=== PATIENT | male | born 1955 | race African-American/Black ===

== ENCOUNTER 2018-05-23 17:10 | Inpatient (IN) ==
[2018-05-23] MEDS ORDERED: MORPHINE 4 MG/1 ML VIAL IV STA (17:39)
[2018-05-23] MEDS ORDERED: FUROSEMIDE 100 MG/10 ML VIAL IV STA (17:39)
[2018-05-23] MEDS ORDERED: ALBUTEROL/IPRATROPIUM 3 ML NEB RESP TX STA (17:39)
[2018-05-23] MEDS ORDERED: ONDANSETRON 4 MG/2 ML VIAL IV STA (17:39)
[2018-05-23] MEDS ORDERED: NITROGLYCERIN 2% OINT 1 INCH/GM PACK TOP STA (17:39)
[2018-05-23] MEDS ORDERED: hydrALAZINE 20 MG/1 ML VIAL IV STA (17:39)
[2018-05-23 17:50] LABS: Basophils % 0.4 % (0.0-0.8); Eosinophils # 0.3 10*3/uL (0.0-0.87); Eosinophils % 2.4 % (0.00-10.9); Hematocrit 30.7 VOL% (42.0-52.0); Hemoglobin 10.3 GM/DL (14.0-18.0); Immature Granulocytes % 0.4 %; Immature Granulocytes Absolute 0.04 #; Lymphocytes # 0.8 10*3/uL (1.4-4.0); Lymphocytes % 7.4 % (21.2-54.2); Mean Corpuscular HGB Conc 33.6 GM/DL (32-36); Mean Corpuscular Hemoglobin 32 PG (27-34); Mean Platelet Volume 9.9 FL (9.6-12.0); Monocytes # 1.1 10*3/uL (0.11-0.8); Neutrophils # 8.6 10*3/uL (1.4-7.4); Neutrophils % 79.4 % (38.7-73.9); Platelet Count 255 T/CUMM (130-400); Red Blood Count 3.23 MC/CUMM (3.8-5.5); Red Cell Distribution Width 15.5 % (9.3-17.3); White Blood Count 10.8 T/CUMM (4-12)
[2018-05-23 18:20] LABS: Albumin 3.1 G/DL (3.4-5.0); Bilirubin,Total 0.4 MG/DL (0.2-1.0); Calcium 8.8 MG/DL (8.5-10.1); Osmolality,Calculated 301.8 MOS/KG (273-304); Potassium 4.3 MMOL/L (3.5-5.1); Total Protein 7.8 G/DL (6.4-8.3)
[2018-05-23 18:27] LABS: PT Patient Result 10.5 SECS
[2018-05-23] MEDS ORDERED: cefTRIAXone 1,000 MG in SODIUM CHLORIDE 0.9% 100 ML IV STA (18:30)
[2018-05-23] MEDS ORDERED: ZALEPLON 5 MG CAPSULE PO PRN (19:35)
[2018-05-23] MEDS ORDERED: LABETALOL 100 MG/20 ML VIAL IV PRN (19:43)
[2018-05-23 19:55] LABS: Apearance,Urine CLEAR (Clear); Bilirubin,Urine Negative (Negative); Blood, Urine Negative (Negative); Glucose,Urine (UA) Negative (Negative); Ketones,Urine Negative (Negative); Nitrite,Urine Negative (Negative); Protein,Urine >=500 MG/DL; RBC,Urine <1 /HPF (0-4); Urine Color Straw (Yellow); Urine Specific Gravity 1.007 (1.001-1.035); Urine Urobilinogen < 2.0 EU/DL (0.2-1.0); WBC,Urine <1 /HPF (0-6)
[2018-05-23 20:19] LABS: Barbiturates Screen,Urine Negative (Negative); Benzodiazepines Screen,Urine Negative (Negative); Cannabinoid Screen,Urine Negative (Negative); Opiate Screen,Urine Negative (Negative); Phencyclidine Screen,Urine Negative (Negative)
[2018-05-23] MEDS: ENOXAPARIN 30 MG/0.3 ML SYRINGE SUBCUT SCH (21:50)
[2018-05-23] MEDS: SIMVASTATIN 20 MG TABLET PO SCH (21:50)
[2018-05-23] MEDS: CARVEDILOL 12.5 MG TABLET PO SCH (21:51)
[2018-05-23] MEDS: OLOPATADINE 0.1% OPH SOLN 5 ML BOTTLE BOTH EYES SCH (21:51)
[2018-05-23] MEDS: FUROSEMIDE 40 MG/4 ML VIAL IV SCH (21:51)
[2018-05-23] MEDS: AZITHROMYCIN INJ 500 MG in SODIUM CHLORIDE 0.9% 250 ML IV SCH (21:51)
[2018-05-23 22:30] LABS: Troponin I 0.049 NG/ML (0.00-0.045)
[2018-05-24 03:19] LABS: Basophils % 0.6 % (0.0-0.8); Eosinophils # 0.1 10*3/uL (0.0-0.87); Hematocrit 30.5 VOL% (42.0-52.0); Hemoglobin 10.2 GM/DL (14.0-18.0); Immature Granulocytes % 0.6 %; Immature Granulocytes Absolute 0.04 #; Lymphocytes # 0.7 10*3/uL (1.4-4.0); Lymphocytes % 9.7 % (21.2-54.2); Mean Corpuscular HGB Conc 33.4 GM/DL (32-36); Mean Corpuscular Hemoglobin 32 PG (27-34); Mean Corpuscular Volume 96.8 FL (87-102); Mean Platelet Volume 9.9 FL (9.6-12.0); Monocytes # 0.6 10*3/uL (0.11-0.8); Monocytes % 8.2 % (1.7-12.7); Neutrophils # 5.6 10*3/uL (1.4-7.4); Neutrophils % 78.9 % (38.7-73.9); Platelet Count 245 T/CUMM (130-400); Red Blood Count 3.15 MC/CUMM (3.8-5.5); Red Cell Distribution Width 15.7 % (9.3-17.3); White Blood Count 7.1 T/CUMM (4-12)
[2018-05-24 03:37] LABS: % Iron Saturation 15.6 % (18-50); Ferritin 258.4 ng/ml (26-388); Free T4 (Free Thyroxine) 1.22 NG/DL (0.76-1.46)
[2018-05-24 03:38] LABS: Troponin I 0.042 NG/ML (0.00-0.045)
[2018-05-24 03:43] LABS: Calcium 8.5 MG/DL (8.5-10.1); Osmolality,Calculated 300.1 MOS/KG (273-304); Potassium 4.1 MMOL/L (3.5-5.1); Risk Ratio 2.74; Thyroid Stimulating Hormone 1.91 uIU/ml (0.358-3.74); VLDL CHOLESTEROL 26.6 MG/DL
[2018-05-24 04:07] LABS: Folate 21.3 NG/ML (5.4-24.0); Vitamin B12 451 PG/ML (211-911)
[2018-05-24 04:20] LABS: Sedimentation Rate-Westergren 112 MM/HR (0-20)
[2018-05-24 09:17] LABS: Hemoglobin A1 (Alkaline) 97.2 % (96.5-98.5); Hemoglobin A2 (Alkaline) 2.8 % (1.5-3.5)
[2018-05-24] MEDS: FAMOTIDINE 20 MG TABLET PO SCH (10:05)
[2018-05-24] MEDS: FUROSEMIDE 40 MG/4 ML VIAL IV SCH ×2 (10:06→21:01)
[2018-05-24] MEDS: OLOPATADINE 0.1% OPH SOLN 5 ML BOTTLE BOTH EYES SCH ×2 (10:06→21:02)
[2018-05-24] MEDS: CARVEDILOL 12.5 MG TABLET PO SCH ×2 (10:06→16:58)
[2018-05-24] MEDS: ALLOPURINOL 100 MG TABLET PO SCH (10:06)
[2018-05-24] MEDS: GABAPENTIN 300 MG CAPSULE PO SCH ×2 (14:05→21:02)
[2018-05-24] MEDS: IRON (CARBONYL)/VIT C/B12/FA TABLET PO SCH (14:05)
[2018-05-24] MEDS: cefTRIAXone 2,000 MG in SYRINGE 1 EACH IV SCH (16:59)
[2018-05-24] MEDS: ACETAMINOPHEN 325 MG TABLET PO PRN (18:51)
[2018-05-24] MEDS: ENOXAPARIN 30 MG/0.3 ML SYRINGE SUBCUT SCH (21:01)
[2018-05-24] MEDS: SIMVASTATIN 20 MG TABLET PO SCH (21:02)
[2018-05-24] MEDS: AZITHROMYCIN INJ 500 MG in SODIUM CHLORIDE 0.9% 250 ML IV SCH (23:20)
[2018-05-25] MEDS: ALLOPURINOL 100 MG TABLET PO SCH (08:38)
[2018-05-25] MEDS: OLOPATADINE 0.1% OPH SOLN 5 ML BOTTLE BOTH EYES SCH ×2 (08:38→20:48)
[2018-05-25] MEDS: FAMOTIDINE 20 MG TABLET PO SCH (08:38)
[2018-05-25] MEDS: CARVEDILOL 12.5 MG TABLET PO SCH ×3 (08:38→17:40)
[2018-05-25] MEDS: GABAPENTIN 300 MG CAPSULE PO SCH ×2 (08:38→20:47)
[2018-05-25] MEDS: IRON (CARBONYL)/VIT C/B12/FA TABLET PO SCH (08:38)
[2018-05-25] MEDS: FUROSEMIDE 40 MG/4 ML VIAL IV SCH ×2 (09:26→16:20)
[2018-05-25] MEDS: ACETAMINOPHEN 325 MG TABLET PO PRN (15:33)
[2018-05-25] MEDS: cefTRIAXone 2,000 MG in SYRINGE 1 EACH IV SCH (18:06)
[2018-05-25] MEDS: ENOXAPARIN 30 MG/0.3 ML SYRINGE SUBCUT SCH (20:48)
[2018-05-25] MEDS: SIMVASTATIN 20 MG TABLET PO SCH (20:48)
[2018-05-25] MEDS: AZITHROMYCIN INJ 500 MG in SODIUM CHLORIDE 0.9% 250 ML IV SCH (21:17)
[2018-05-26 06:01] LABS: Basophils % 0.4 % (0.0-0.8); Eosinophils # 0.3 10*3/uL (0.0-0.87); Eosinophils % 4.5 % (0.00-10.9); Hemoglobin 9.5 GM/DL (14.0-18.0); Immature Granulocytes % 0.6 %; Immature Granulocytes Absolute 0.04 #; Lymphocytes # 0.9 10*3/uL (1.4-4.0); Mean Corpuscular HGB Conc 32.8 GM/DL (32-36); Mean Corpuscular Hemoglobin 31 PG (27-34); Mean Corpuscular Volume 95.7 FL (87-102); Mean Platelet Volume 10.2 FL (9.6-12.0); Monocytes # 0.9 10*3/uL (0.11-0.8); Neutrophils # 4.5 10*3/uL (1.4-7.4); Neutrophils % 67.5 % (38.7-73.9); Platelet Count 265 T/CUMM (130-400); Red Blood Count 3.03 MC/CUMM (3.8-5.5); Red Cell Distribution Width 14.8 % (9.3-17.3); White Blood Count 6.7 T/CUMM (4-12)
[2018-05-26 06:34] LABS: Calcium 8.1 MG/DL (8.5-10.1); Osmolality,Calculated 298.5 MOS/KG (273-304); Potassium 3.9 MMOL/L (3.5-5.1)
[2018-05-26] MEDS: IRON (CARBONYL)/VIT C/B12/FA TABLET PO SCH (09:08)
[2018-05-26] MEDS: CARVEDILOL 12.5 MG TABLET PO SCH ×2 (09:08→16:53)
[2018-05-26] MEDS: FAMOTIDINE 20 MG TABLET PO SCH (09:08)
[2018-05-26] MEDS: FUROSEMIDE 40 MG/4 ML VIAL IV SCH ×2 (09:08→15:24)
[2018-05-26] MEDS: ALLOPURINOL 100 MG TABLET PO SCH (09:09)
[2018-05-26] MEDS: OLOPATADINE 0.1% OPH SOLN 5 ML BOTTLE BOTH EYES SCH ×2 (09:09→20:25)
[2018-05-26] MEDS: cefTRIAXone 2,000 MG in SYRINGE 1 EACH IV SCH (17:07)
[2018-05-26] MEDS: ENOXAPARIN 30 MG/0.3 ML SYRINGE SUBCUT SCH (20:22)
[2018-05-26] MEDS: GABAPENTIN 300 MG CAPSULE PO SCH (20:22)
[2018-05-26] MEDS: SIMVASTATIN 20 MG TABLET PO SCH (20:22)
[2018-05-26] MEDS: ACETAMINOPHEN 325 MG TABLET PO PRN (20:22)
[2018-05-26] MEDS: AZITHROMYCIN INJ 500 MG in SODIUM CHLORIDE 0.9% 250 ML IV SCH (21:01)
[2018-05-27] MEDS: ALLOPURINOL 100 MG TABLET PO SCH (09:22)
[2018-05-27] MEDS: CARVEDILOL 12.5 MG TABLET PO SCH ×2 (09:22→17:17)
[2018-05-27] MEDS: FAMOTIDINE 20 MG TABLET PO SCH (09:22)
[2018-05-27] MEDS: IRON (CARBONYL)/VIT C/B12/FA TABLET PO SCH (09:23)
[2018-05-27] MEDS: OLOPATADINE 0.1% OPH SOLN 5 ML BOTTLE BOTH EYES SCH ×2 (10:23→20:37)
[2018-05-27] MEDS: FUROSEMIDE 40 MG/4 ML VIAL IV SCH ×2 (10:23→16:15)
[2018-05-27] MEDS: DOCUSATE SODIUM 100 MG CAPSULE PO PRN (10:24)
[2018-05-27] MEDS: cefTRIAXone 2,000 MG in SYRINGE 1 EACH IV SCH (17:51)
[2018-05-27] MEDS: GABAPENTIN 300 MG CAPSULE PO SCH (20:36)
[2018-05-27] MEDS: ENOXAPARIN 30 MG/0.3 ML SYRINGE SUBCUT SCH (20:36)
[2018-05-27] MEDS: SIMVASTATIN 20 MG TABLET PO SCH (20:37)
[2018-05-27] MEDS: AZITHROMYCIN INJ 500 MG in SODIUM CHLORIDE 0.9% 250 ML IV SCH (21:22)
[2018-05-28 04:35] LABS: Basophils % 0.6 % (0.0-0.8); Eosinophils # 0.3 10*3/uL (0.0-0.87); Hematocrit 30.6 VOL% (42.0-52.0); Hemoglobin 10.3 GM/DL (14.0-18.0); Immature Granulocytes % 0.3 %; Immature Granulocytes Absolute 0.02 #; Lymphocytes # 0.9 10*3/uL (1.4-4.0); Lymphocytes % 14.4 % (21.2-54.2); Mean Corpuscular HGB Conc 33.7 GM/DL (32-36); Mean Corpuscular Hemoglobin 32 PG (27-34); Mean Corpuscular Volume 94.4 FL (87-102); Mean Platelet Volume 10.1 FL (9.6-12.0); Monocytes # 1.1 10*3/uL (0.11-0.8); Monocytes % 16.5 % (1.7-12.7); Neutrophils # 4.1 10*3/uL (1.4-7.4); Neutrophils % 64.2 % (38.7-73.9); Platelet Count 304 T/CUMM (130-400); Red Blood Count 3.24 MC/CUMM (3.8-5.5); Red Cell Distribution Width 14.6 % (9.3-17.3); White Blood Count 6.4 T/CUMM (4-12)
[2018-05-28 05:04] LABS: Calcium 8.2 MG/DL (8.5-10.1); Osmolality,Calculated 296.8 MOS/KG (273-304); Potassium 3.7 MMOL/L (3.5-5.1)
[2018-05-28 05:16] LABS: Eosinophils 5 % (0-10); Hypochromasia 1+; Lymphocytes 15 % (20-55); Platelet Estimate Adequate; Segmented Neutrophils 61 % (50-85); Total Cells Counted 100
[2018-05-28] MEDS: FUROSEMIDE 40 MG/4 ML VIAL IV SCH (08:45)
[2018-05-28] MEDS: FAMOTIDINE 20 MG TABLET PO SCH (08:46)
[2018-05-28] MEDS: IRON (CARBONYL)/VIT C/B12/FA TABLET PO SCH (08:46)
[2018-05-28] MEDS: ALLOPURINOL 100 MG TABLET PO SCH (08:46)
[2018-05-28] MEDS: CARVEDILOL 12.5 MG TABLET PO SCH (08:57)
[2018-05-28] MEDS: OLOPATADINE 0.1% OPH SOLN 5 ML BOTTLE BOTH EYES SCH (10:00)
[2018-05-28] MEDS: DOCUSATE SODIUM 100 MG CAPSULE PO PRN (14:27)
[2018-05-28 16:50] VITALS: BP 127/87
== END 2018-05-28 18:23 | disposition home or self-care (01) | DRG 291 ==
LOC: N.ED 17:10 → N.EDINP 19:35 → SUATTDRO 19:35 → N.TELEN 19:57
PROVIDERS: ADMIT Hospitalist

== ENCOUNTER 2019-12-31 17:23 | Inpatient (IN) ==
[2019-12-31] MEDS ORDERED: ACETAMINOPHEN 500 MG TABLET ONE (17:35)
[2019-12-31] MEDS ORDERED: methylPREDNISolone SOD SUC 125 MG/2 ML VIAL IV STA (17:41)
[2019-12-31] MEDS ORDERED: VANCOMYCIN INJ 1,250 MG in SODIUM CHLORIDE 0.9% 250 ML IV STA (17:41)
[2019-12-31] MEDS ORDERED: AZITHROMYCIN 250 MG TABLET PO STA (17:41)
[2019-12-31] MEDS ORDERED: ACETAMINOPHEN 500 MG TABLET PO STA (17:48)
[2019-12-31 18:43] LABS: Basophils % 0.2 % (0.0-0.8); Hemoglobin 9.9 GM/DL (14.0-18.0); Immature Granulocytes % 0.5 %; Immature Granulocytes Absolute 0.03 #; Lymphocytes # 0.5 10*3/uL (1.4-4.0); Lymphocytes % 9.2 % (21.2-54.2); Mean Corpuscular HGB Conc 31.9 GM/DL (32-36); Mean Platelet Volume 9.9 FL (9.6-12.0); Monocytes % 22.6 % (1.7-12.7); Neutrophils % 67.5 % (38.7-73.9); Platelet Count 187 T/CUMM (130-400); Red Blood Count 3.01 MC/CUMM (3.8-5.5); Red Cell Distribution Width 14.9 % (9.3-17.3); White Blood Count 5.5 T/CUMM (4-12)
[2019-12-31 18:52] LABS: INR 1.1
[2019-12-31 19:04] LABS: Albumin 3.4 G/DL (3.4-5.0); Bilirubin,Total 0.5 MG/DL (0.2-1.0); Calcium 8.9 MG/DL (8.5-10.1); Ferritin 952.4 ng/ml (26-388); Osmolality,Calculated 286.8 MOS/KG (273-304); Total Protein 8.2 G/DL (6.4-8.3)
[2019-12-31 19:11] LABS: Band Neutrophils 1 % (0-10); Hypochromasia Slight; Lymphocytes 6 % (20-55); Segmented Neutrophils 77 % (50-85); Total Cells Counted 100
[2019-12-31 19:12] LABS: Platelet Estimate Adequate
[2019-12-31] MEDS ORDERED: GLUCAGON 1 MG VIAL IM PRN (19:39)
[2019-12-31] MEDS ORDERED: ONDANSETRON 4 MG/2 ML VIAL IV PRN (19:39)
[2019-12-31] MEDS ORDERED: DEXTROSE 10% 250 ML BAG IV PRN (19:39)
[2019-12-31 19:43] LABS: Sedimentation Rate-Westergren 87 MM/HR (0-20)
[2019-12-31] MEDS ORDERED: HYDROXYCHLOROQUINE 200 MG TABLET PO SCH (21:00)
[2019-12-31] MEDS: ENOXAPARIN 30 MG/0.3 ML SYRINGE SUBCUT SCH (22:25)
[2019-12-31] MEDS: PIPERACILLIN/TAZOBACTAM 3,375 MG in SODIUM CHLORIDE 0.9% 100 ML IV SCH (23:58)
[2020-01-01] MEDS ORDERED: PANTOPRAZOLE 40 MG TABLET PO SCH (09:00)
[2020-01-01 09:51] LABS: Basophils % 0.2 % (0.0-0.8); Hematocrit 33.1 VOL% (42.0-52.0); Hemoglobin 10.4 GM/DL (14.0-18.0); Immature Granulocytes % 0.7 %; Immature Granulocytes Absolute 0.03 #; Lymphocytes # 0.6 10*3/uL (1.4-4.0); Lymphocytes % 14.3 % (21.2-54.2); Mean Corpuscular HGB Conc 31.4 GM/DL (32-36); Mean Corpuscular Volume 103.1 FL (87-102); Mean Platelet Volume 10.1 FL (9.6-12.0); Monocytes % 5.3 % (1.7-12.7); Neutrophils % 79.5 % (38.7-73.9); Platelet Count 203 T/CUMM (130-400); Red Blood Count 3.21 MC/CUMM (3.8-5.5); Red Cell Distribution Width 14.7 % (9.3-17.3); White Blood Count 4.5 T/CUMM (4-12)
[2020-01-01 10:16] LABS: Albumin 3.3 G/DL (3.4-5.0); Bilirubin,Total 0.8 MG/DL (0.2-1.0); Calcium 9.2 MG/DL (8.5-10.1); Ferritin 1104.4 ng/ml (26-388); Total Protein 8.8 G/DL (6.4-8.3)
[2020-01-01] MEDS: PIPERACILLIN/TAZOBACTAM 3,375 MG in SODIUM CHLORIDE 0.9% 100 ML IV SCH ×2 (10:20→22:39)
[2020-01-01] MEDS ORDERED: VANCOMYCIN INJ 750 MG in SODIUM CHLORIDE 0.9% 250 ML IV PRN (14:47)
[2020-01-01 15:41] LABS: Apearance,Urine CLEAR (Clear); Bilirubin,Urine Negative (Negative); Blood, Urine Negative (Negative); Glucose,Urine (UA) 150 mg/dL (Negative); Ketones,Urine Negative (Negative); Mucus,Urine Occasional /LPF (Occasional); Nitrite,Urine Negative (Negative); Protein,Urine 100 MG/DL; RBC,Urine <1 /HPF (0-4); Urine Color Yellow (Yellow); Urine Specific Gravity 1.014 (1.001-1.035); Urine Urobilinogen < 2.0 EU/DL (0.2-1.0); WBC,Urine <1 /HPF (0-6)
[2020-01-01] MEDS ORDERED: VANCOMYCIN INJ 1,750 MG in SODIUM CHLORIDE 0.9% 500 ML IV ONE (18:00)
[2020-01-01] MEDS ORDERED: AZITHROMYCIN 250 MG TABLET PO SCH (20:00)
[2020-01-01] MEDS ORDERED: HYDROXYCHLOROQUINE 200 MG TABLET PO SCH ×2 (21:00)
[2020-01-01 21:22] LABS: Barbiturates Screen,Urine Negative (Negative); Benzodiazepines Screen,Urine Negative (Negative); Cannabinoid Screen,Urine Negative (Negative); Opiate Screen,Urine Negative (Negative); Phencyclidine Screen,Urine Negative (Negative)
[2020-01-01] MEDS: ATORVASTATIN 20 MG TABLET PO SCH (22:39)
[2020-01-01] MEDS: carvediloL 25 MG TABLET PO SCH (22:39)
[2020-01-01] MEDS: cloNIDine 0.1 MG TABLET PO SCH (22:39)
[2020-01-01] MEDS: ENOXAPARIN 30 MG/0.3 ML SYRINGE SUBCUT SCH (22:39)
[2020-01-01] MEDS: GABAPENTIN 300 MG CAPSULE PO SCH (22:39)
[2020-01-02 05:44] LABS: Hematocrit 32.9 VOL% (42.0-52.0); Hemoglobin 10.8 GM/DL (14.0-18.0); Immature Granulocytes % 0.8 %; Immature Granulocytes Absolute 0.07 #; Lymphocytes # 0.4 10*3/uL (1.4-4.0); Lymphocytes % 4.6 % (21.2-54.2); Mean Corpuscular HGB Conc 32.8 GM/DL (32-36); Mean Corpuscular Volume 98.8 FL (87-102); Mean Platelet Volume 10.3 FL (9.6-12.0); Monocytes % 6.5 % (1.7-12.7); Neutrophils % 88.1 % (38.7-73.9); Platelet Count 199 T/CUMM (130-400); Red Blood Count 3.33 MC/CUMM (3.8-5.5); Red Cell Distribution Width 14.8 % (9.3-17.3); White Blood Count 8.7 T/CUMM (4-12)
[2020-01-02] MEDS: ACETAMINOPHEN 325 MG TABLET PO PRN ×3 (05:45→16:25)
[2020-01-02 06:06] LABS: Calcium 8.6 MG/DL (8.5-10.1); Osmolality,Calculated 288.1 MOS/KG (273-304)
[2020-01-02 06:08] LABS: Band Neutrophils 2 % (0-10); Lymphocytes 5 % (20-55); Nucleated Red Blood Cells 1 (0-5); Segmented Neutrophils 88 % (50-85); Total Cells Counted 100
[2020-01-02 06:09] LABS: Hypochromasia 1+; Microcytosis Slight; Platelet Estimate Adequate
[2020-01-02] MEDS: amLODIPine 10 MG TABLET PO SCH (08:50)
[2020-01-02] MEDS: allopurinoL 100 MG TABLET PO SCH (08:50)
[2020-01-02] MEDS: LEVOTHYROXINE 88 MCG TABLET PO SCH (08:50)
[2020-01-02] MEDS: carvediloL 25 MG TABLET PO SCH ×2 (08:50→22:01)
[2020-01-02] MEDS: CITALOPRAM 20 MG TABLET PO SCH (08:51)
[2020-01-02] MEDS: cloNIDine 0.1 MG TABLET PO SCH ×2 (08:51→21:42)
[2020-01-02] MEDS: GABAPENTIN 300 MG CAPSULE PO SCH ×2 (08:51→21:42)
[2020-01-02] MEDS: PIPERACILLIN/TAZOBACTAM 3,375 MG in SODIUM CHLORIDE 0.9% 100 ML IV SCH ×2 (08:52→21:42)
[2020-01-02] MEDS ORDERED: ZINC SULFATE 220 MG CAPSULE PO SCH (09:00)
[2020-01-02] MEDS ORDERED: PHENOL 1.4% THROAT SPRAY 177 ML BOTTLE PO PRN (11:50)
[2020-01-02 17:30] LABS: ABG Base Excess -2.4 MMOL/L (-2.5-2.5); ABG HCO3 22.2 MMOL/L (20-26); ABG Oxygen Saturation 83.4 % (95-100); ABG PCO2 27.1 MM HG (35-48); ABG PH 7.478 (7.35-7.45); ABG TCO2 18.1 MMOL/L (23-27); Allen Test Positive
[2020-01-02 18:32] LABS: ABG Base Excess -2.7 MMOL/L (-2.5-2.5); ABG HCO3 21.9 MMOL/L (20-26); ABG Oxygen Saturation 82.6 % (95-100); ABG PCO2 27.3 MM HG (35-48); ABG PO2 47.3 MM HG (80-95); ABG TCO2 17.9 MMOL/L (23-27)
[2020-01-02] MEDS: ENOXAPARIN 30 MG/0.3 ML SYRINGE SUBCUT SCH (21:42)
[2020-01-02] MEDS: ATORVASTATIN 20 MG TABLET PO SCH (21:42)
[2020-01-03 05:15] LABS: Basophils % 0.2 % (0.0-0.8); Hematocrit 30.5 VOL% (42.0-52.0); Hemoglobin 9.7 GM/DL (14.0-18.0); Immature Granulocytes % 0.8 %; Immature Granulocytes Absolute 0.05 #; Lymphocytes # 0.6 10*3/uL (1.4-4.0); Lymphocytes % 8.4 % (21.2-54.2); Mean Corpuscular HGB Conc 31.8 GM/DL (32-36); Mean Platelet Volume 10.3 FL (9.6-12.0); Neutrophils % 81.6 % (38.7-73.9); Platelet Count 208 T/CUMM (130-400); Red Blood Count 2.99 MC/CUMM (3.8-5.5); Red Cell Distribution Width 15.2 % (9.3-17.3); White Blood Count 6.5 T/CUMM (4-12)
[2020-01-03] MEDS: ACETAMINOPHEN 325 MG TABLET PO PRN ×4 (05:25→18:20)
[2020-01-03 05:49] LABS: Albumin 2.8 G/DL (3.4-5.0); Bilirubin,Total 0.7 MG/DL (0.2-1.0); Calcium 8.4 MG/DL (8.5-10.1); Osmolality,Calculated 296.1 MOS/KG (273-304)
[2020-01-03] MEDS: CITALOPRAM 20 MG TABLET PO SCH (08:27)
[2020-01-03] MEDS: amLODIPine 10 MG TABLET PO SCH (08:27)
[2020-01-03] MEDS: cloNIDine 0.1 MG TABLET PO SCH ×2 (08:28→20:10)
[2020-01-03] MEDS: LEVOTHYROXINE 88 MCG TABLET PO SCH (08:28)
[2020-01-03] MEDS: carvediloL 25 MG TABLET PO SCH ×2 (08:28→20:10)
[2020-01-03] MEDS: GABAPENTIN 300 MG CAPSULE PO SCH ×2 (08:29→20:10)
[2020-01-03] MEDS: PIPERACILLIN/TAZOBACTAM 3,375 MG in SODIUM CHLORIDE 0.9% 100 ML IV SCH ×2 (08:29→20:10)
[2020-01-03] MEDS: allopurinoL 100 MG TABLET PO SCH (08:30)
[2020-01-03] MEDS ORDERED: VANCOMYCIN INJ 750 MG in SODIUM CHLORIDE 0.9% 250 ML IV ONE (18:00)
[2020-01-03] MEDS: ATORVASTATIN 20 MG TABLET PO SCH (20:10)
[2020-01-03] MEDS: ENOXAPARIN 30 MG/0.3 ML SYRINGE SUBCUT SCH (20:10)
[2020-01-04] MEDS: ACETAMINOPHEN 325 MG TABLET PO PRN ×2 (01:30→17:27)
[2020-01-04] MEDS: GABAPENTIN 300 MG CAPSULE PO SCH ×2 (08:00→21:46)
[2020-01-04] MEDS: allopurinoL 100 MG TABLET PO SCH (08:01)
[2020-01-04] MEDS: CITALOPRAM 20 MG TABLET PO SCH (08:02)
[2020-01-04] MEDS: LEVOTHYROXINE 88 MCG TABLET PO SCH (08:02)
[2020-01-04] MEDS: amLODIPine 10 MG TABLET PO SCH (08:02)
[2020-01-04] MEDS: cloNIDine 0.1 MG TABLET PO SCH ×2 (08:02→21:45)
[2020-01-04] MEDS: carvediloL 25 MG TABLET PO SCH ×2 (08:14→21:45)
[2020-01-04] MEDS: PIPERACILLIN/TAZOBACTAM 3,375 MG in SODIUM CHLORIDE 0.9% 100 ML IV SCH ×2 (09:45→21:46)
[2020-01-04] MEDS: ATORVASTATIN 20 MG TABLET PO SCH (21:45)
[2020-01-04] MEDS: ENOXAPARIN 30 MG/0.3 ML SYRINGE SUBCUT SCH (21:45)
[2020-01-05] MEDS: ACETAMINOPHEN 325 MG TABLET PO PRN (01:10)
[2020-01-05 02:52] LABS: ABG HCO3 22.4 MMOL/L (20-26); ABG Oxygen Saturation 82.7 % (95-100); ABG PCO2 28.3 MM HG (35-48); ABG PH 7.463 (7.35-7.45); ABG PO2 49.6 MM HG (80-95); ABG TCO2 17.3 MMOL/L (23-27); Allen Test Positive; Pt O2 Delivery Device Other
[2020-01-05] MEDS ORDERED: ETOMIDATE 20 MG/10 ML VIAL IV ONE ×2 (03:10→03:40)
[2020-01-05] MEDS ORDERED: propofoL 200 MG/20 ML VIAL IV ONE ×2 (03:10→03:45)
[2020-01-05] MEDS ORDERED: VECURONIUM 10 MG VIAL IV ONE (03:10)
[2020-01-05] MEDS ORDERED: ROCURONIUM 100 MG/10 ML VIAL IV ONE ×3 (03:11→03:54)
[2020-01-05] MEDS: ROCURONIUM 500 MG in SODIUM CHLORIDE 0.9% 500 ML IV PRN ×2 (04:11→13:57)
[2020-01-05 04:25] LABS: ABG Base Excess -4.3 MMOL/L (-2.5-2.5); ABG HCO3 20.8 MMOL/L (20-26); ABG Oxygen Saturation 91.9 % (95-100); ABG PCO2 36.4 MM HG (35-48); ABG PO2 72.1 MM HG (80-95); ABG TCO2 18.5 MMOL/L (23-27); Allen Test Positive; Pt O2 Delivery Device Ventilator
[2020-01-05] MEDS ORDERED: NOREPINEPHRINE 8 MG in SODIUM CHLORIDE 0.9% 242 ML IV PRN (04:33)
[2020-01-05 05:00] LABS: Basophils % 0.3 % (0.0-0.8); Eosinophils % 0.3 % (0.00-10.9); Hematocrit 28.2 VOL% (42.0-52.0); Hemoglobin 9.2 GM/DL (14.0-18.0); Immature Granulocytes % 0.5 %; Immature Granulocytes Absolute 0.02 #; Lymphocytes # 0.4 10*3/uL (1.4-4.0); Lymphocytes % 9.8 % (21.2-54.2); Mean Corpuscular HGB Conc 32.6 GM/DL (32-36); Mean Corpuscular Volume 101.4 FL (87-102); Mean Platelet Volume 10.1 FL (9.6-12.0); Monocytes % 13.1 % (1.7-12.7); Platelet Count 216 T/CUMM (130-400); Red Blood Count 2.78 MC/CUMM (3.8-5.5); Red Cell Distribution Width 14.8 % (9.3-17.3); White Blood Count 3.9 T/CUMM (4-12)
[2020-01-05 05:21] LABS: Calcium 6.6 MG/DL (8.5-10.1)
[2020-01-05 05:22] LABS: Lymphocytes 5 % (20-55); Segmented Neutrophils 86 % (50-85); Total Cells Counted 100
[2020-01-05 05:23] LABS: Hypochromasia 1+; Macrocytosis Slight
[2020-01-05] MEDS: allopurinoL 100 MG TABLET PO SCH (08:29)
[2020-01-05] MEDS: CITALOPRAM 20 MG TABLET PO SCH (08:29)
[2020-01-05] MEDS: GABAPENTIN 300 MG CAPSULE PO SCH ×2 (08:29→21:46)
[2020-01-05] MEDS: LEVOTHYROXINE 88 MCG TABLET PO SCH (08:31)
[2020-01-05] MEDS: ZINC SULFATE 220 MG CAPSULE PO SCH (08:37)
[2020-01-05] MEDS: HYDROXYCHLOROQUINE 200 MG TABLET PO SCH ×2 (08:37→21:46)
[2020-01-05] MEDS: carvediloL 25 MG TABLET PO SCH ×2 (09:28→21:46)
[2020-01-05] MEDS: cloNIDine 0.1 MG TABLET PO SCH ×2 (09:28→21:46)
[2020-01-05] MEDS: amLODIPine 10 MG TABLET PO SCH (09:29)
[2020-01-05] MEDS: PIPERACILLIN/TAZOBACTAM 3,375 MG in SODIUM CHLORIDE 0.9% 100 ML IV SCH ×2 (10:23→21:45)
[2020-01-05] MEDS ORDERED: VANCOMYCIN INJ 750 MG in SODIUM CHLORIDE 0.9% 250 ML IV ONE (21:00)
[2020-01-05] MEDS: ENOXAPARIN 30 MG/0.3 ML SYRINGE SUBCUT SCH (21:46)
[2020-01-05] MEDS: ATORVASTATIN 20 MG TABLET PO SCH (21:46)
[2020-01-06 04:11] LABS: ABG Base Excess -7.9 MMOL/L (-2.5-2.5); ABG HCO3 18.1 MMOL/L (20-26); ABG Oxygen Saturation 95.7 % (95-100); ABG PCO2 38.7 MM HG (35-48); ABG PH 7.287 (7.35-7.45); ABG PO2 98.2 MM HG (80-95); ABG TCO2 19.3 MMOL/L (23-27); Allen Test Positive; Pt O2 Delivery Device Ventilator
[2020-01-06 04:38] LABS: Basophils % 0.3 % (0.0-0.8); Eosinophils # 0.1 10*3/uL (0.0-0.87); Eosinophils % 1.8 % (0.00-10.9); Hematocrit 33.2 VOL% (42.0-52.0); Hemoglobin 10.9 GM/DL (14.0-18.0); Immature Granulocytes % 0.6 %; Immature Granulocytes Absolute 0.04 #; Lymphocytes # 0.3 10*3/uL (1.4-4.0); Mean Corpuscular HGB Conc 32.8 GM/DL (32-36); Mean Corpuscular Volume 100.6 FL (87-102); Mean Platelet Volume 9.9 FL (9.6-12.0); Monocytes % 13.9 % (1.7-12.7); Neutrophils % 78.4 % (38.7-73.9); Platelet Count 238 T/CUMM (130-400); Red Cell Distribution Width 14.2 % (9.3-17.3); White Blood Count 6.8 T/CUMM (4-12)
[2020-01-06 05:00] LABS: Calcium 7.7 MG/DL (8.5-10.1); Osmolality,Calculated 298.5 MOS/KG (273-304)
[2020-01-06] MEDS: CITALOPRAM 20 MG TABLET PO SCH (08:20)
[2020-01-06] MEDS: LEVOTHYROXINE 88 MCG TABLET PO SCH (08:20)
[2020-01-06] MEDS: carvediloL 25 MG TABLET PO SCH ×2 (08:20→21:34)
[2020-01-06] MEDS: GABAPENTIN 300 MG CAPSULE PO SCH ×2 (08:20→21:35)
[2020-01-06] MEDS: HYDROXYCHLOROQUINE 200 MG TABLET PO SCH ×2 (08:20→21:35)
[2020-01-06] MEDS: allopurinoL 100 MG TABLET PO SCH (08:22)
[2020-01-06] MEDS: PIPERACILLIN/TAZOBACTAM 3,375 MG in SODIUM CHLORIDE 0.9% 100 ML IV SCH ×2 (08:24→21:52)
[2020-01-06] MEDS: cloNIDine 0.1 MG TABLET PO SCH ×2 (09:17→21:34)
[2020-01-06] MEDS: amLODIPine 10 MG TABLET PO SCH (09:18)
[2020-01-06] MEDS ORDERED: SODIUM CHLORIDE 0.9% 1,000 ML IV PRN (10:34)
[2020-01-06] MEDS: ROCURONIUM 500 MG in SODIUM CHLORIDE 0.9% 500 ML IV PRN (16:16)
[2020-01-06] MEDS: ATORVASTATIN 20 MG TABLET PO SCH (21:35)
[2020-01-06] MEDS: ENOXAPARIN 30 MG/0.3 ML SYRINGE SUBCUT SCH (21:35)
[2020-01-07 03:58] LABS: ABG Base Excess -4.3 MMOL/L (-2.5-2.5); ABG HCO3 22.6 MMOL/L (20-26); ABG Oxygen Saturation 96.5 % (95-100); ABG PCO2 50.1 MM HG (35-48); ABG PH 7.273 (7.35-7.45); ABG PO2 100.3 MM HG (80-95); ABG TCO2 24.2 MMOL/L (23-27); Allen Test Positive; Pt O2 Delivery Device Ventilator
[2020-01-07 04:35] LABS: Basophils # 0.1 10*3/uL (0.0-0.2); Basophils % 0.4 % (0.0-0.8); Eosinophils % 0.1 % (0.00-10.9); Hematocrit 32.8 VOL% (42.0-52.0); Hemoglobin 11.3 GM/DL (14.0-18.0); Immature Granulocytes % 1.3 %; Immature Granulocytes Absolute 0.18 #; Lymphocytes # 0.4 10*3/uL (1.4-4.0); Lymphocytes % 3.1 % (21.2-54.2); Mean Corpuscular HGB Conc 34.5 GM/DL (32-36); Monocytes % 13.8 % (1.7-12.7); Neutrophils % 81.3 % (38.7-73.9); Platelet Count 337 T/CUMM (130-400); Red Blood Count 3.28 MC/CUMM (3.8-5.5); Red Cell Distribution Width 14.5 % (9.3-17.3); White Blood Count 14.1 T/CUMM (4-12)
[2020-01-07 04:51] LABS: Calcium 7.5 MG/DL (8.5-10.1); Osmolality,Calculated 290.4 MOS/KG (273-304)
[2020-01-07 04:56] LABS: Lymphocytes 2 % (20-55); Segmented Neutrophils 92 % (50-85); Total Cells Counted 100
[2020-01-07 04:57] LABS: Platelet Estimate Adequate
[2020-01-07] MEDS: ZINC SULFATE 220 MG CAPSULE PO SCH (08:05)
[2020-01-07] MEDS: GABAPENTIN 300 MG CAPSULE PO SCH ×2 (08:05→20:30)
[2020-01-07] MEDS: CITALOPRAM 20 MG TABLET PO SCH (08:05)
[2020-01-07] MEDS: allopurinoL 100 MG TABLET PO SCH (08:06)
[2020-01-07] MEDS: carvediloL 25 MG TABLET PO SCH ×2 (08:06→21:21)
[2020-01-07] MEDS: HYDROXYCHLOROQUINE 200 MG TABLET PO SCH ×2 (08:06→20:30)
[2020-01-07] MEDS: LEVOTHYROXINE 88 MCG TABLET PO SCH (08:06)
[2020-01-07] MEDS: PIPERACILLIN/TAZOBACTAM 3,375 MG in SODIUM CHLORIDE 0.9% 100 ML IV SCH ×2 (09:27→20:01)
[2020-01-07] MEDS: amLODIPine 10 MG TABLET PO SCH (10:12)
[2020-01-07] MEDS: cloNIDine 0.1 MG TABLET PO SCH ×2 (10:12→21:21)
[2020-01-07] MEDS: ENOXAPARIN 30 MG/0.3 ML SYRINGE SUBCUT SCH (20:30)
[2020-01-07] MEDS: ATORVASTATIN 20 MG TABLET PO SCH (20:30)
[2020-01-08 04:28] LABS: Basophils % 0.3 % (0.0-0.8); Eosinophils % 0.2 % (0.00-10.9); Hematocrit 29.8 VOL% (42.0-52.0); Hemoglobin 10.1 GM/DL (14.0-18.0); Immature Granulocytes % 2.3 %; Immature Granulocytes Absolute 0.36 #; Lymphocytes # 0.5 10*3/uL (1.4-4.0); Lymphocytes % 3.3 % (21.2-54.2); Mean Corpuscular HGB Conc 33.9 GM/DL (32-36); Mean Corpuscular Volume 102.1 FL (87-102); Monocytes % 10.3 % (1.7-12.7); Neutrophils % 83.6 % (38.7-73.9); Platelet Count 406 T/CUMM (130-400); Red Blood Count 2.92 MC/CUMM (3.8-5.5); Red Cell Distribution Width 14.6 % (9.3-17.3); White Blood Count 15.8 T/CUMM (4-12)
[2020-01-08 04:51] LABS: Calcium 7.8 MG/DL (8.5-10.1); Lymphocytes 3 % (20-55); Platelet Estimate Adequate; Segmented Neutrophils 93 % (50-85); Total Cells Counted 100
[2020-01-08 05:13] LABS: ABG HCO3 19.5 MMOL/L (20-26); ABG Oxygen Saturation 98.3 % (95-100); ABG PCO2 38.9 MM HG (35-48); ABG PH 7.313 (7.35-7.45); ABG TCO2 18.1 MMOL/L (23-27); Allen Test Positive; Pt O2 Delivery Device Ventilator
[2020-01-08 05:29] LABS: Osmolality,Calculated 298.8 MOS/KG (273-304)
[2020-01-08] MEDS: ROCURONIUM 500 MG in SODIUM CHLORIDE 0.9% 500 ML IV PRN (05:45)
[2020-01-08] MEDS: LEVOTHYROXINE 88 MCG TABLET PO SCH (08:30)
[2020-01-08] MEDS: CITALOPRAM 20 MG TABLET PO SCH (08:30)
[2020-01-08] MEDS: allopurinoL 100 MG TABLET PO SCH (08:30)
[2020-01-08] MEDS: HYDROXYCHLOROQUINE 200 MG TABLET PO SCH ×2 (08:30→20:15)
[2020-01-08] MEDS: GABAPENTIN 300 MG CAPSULE PO SCH ×2 (08:31→20:15)
[2020-01-08] MEDS: carvediloL 25 MG TABLET PO SCH ×2 (08:31→20:15)
[2020-01-08] MEDS: cloNIDine 0.1 MG TABLET PO SCH ×2 (08:33→21:17)
[2020-01-08] MEDS: amLODIPine 10 MG TABLET PO SCH (08:33)
[2020-01-08] MEDS: METOCLOPRAMIDE 10 MG/2 ML VIAL IV SCH ×3 (12:16→23:35)
[2020-01-08] MEDS ORDERED: VANCOMYCIN INJ 500 MG in SODIUM CHLORIDE 0.9% 100 ML IV PRN (14:30)
[2020-01-08] MEDS ORDERED: VANCOMYCIN INJ 500 MG in SODIUM CHLORIDE 0.9% 100 ML IV ONE (17:00)
[2020-01-08] MEDS: ENOXAPARIN 30 MG/0.3 ML SYRINGE SUBCUT SCH (20:15)
[2020-01-08] MEDS: ATORVASTATIN 20 MG TABLET PO SCH (20:15)
[2020-01-09 05:07] LABS: ABG Base Excess -0.8 MMOL/L (-2.5-2.5); ABG HCO3 23.6 MMOL/L (20-26); ABG Oxygen Saturation 92.9 % (95-100); ABG PCO2 44.8 MM HG (35-48); ABG PH 7.354 (7.35-7.45); ABG PO2 76.4 MM HG (80-95); ABG TCO2 22.5 MMOL/L (23-27); Allen Test Positive; Pt O2 Delivery Device Ventilator
[2020-01-09] MEDS: METOCLOPRAMIDE 10 MG/2 ML VIAL IV SCH ×4 (06:01→17:38)
[2020-01-09 07:20] LABS: Bilirubin,Total 1.31 MG/DL (0.2-1.0)
[2020-01-09 07:36] LABS: Albumin 1.6 G/DL (3.4-5.0); Osmolality,Calculated 288.1 MOS/KG (273-304)
[2020-01-09 08:11] LABS: Calcium 8.6 MG/DL (8.5-10.1)
[2020-01-09 08:13] LABS: Total Protein 7.5 G/DL (6.4-8.3)
[2020-01-09] MEDS: GABAPENTIN 300 MG CAPSULE PO SCH ×2 (08:51→20:15)
[2020-01-09] MEDS: CITALOPRAM 20 MG TABLET PO SCH (08:51)
[2020-01-09] MEDS: HYDROXYCHLOROQUINE 200 MG TABLET PO SCH ×2 (08:51→20:15)
[2020-01-09] MEDS: ZINC SULFATE 220 MG CAPSULE PO SCH (08:52)
[2020-01-09] MEDS: LEVOTHYROXINE 88 MCG TABLET PO SCH (08:52)
[2020-01-09] MEDS: allopurinoL 100 MG TABLET PO SCH (08:52)
[2020-01-09] MEDS: methylPREDNISolone SOD SUC 40 MG/1 ML VIAL IV SCH ×2 (11:48→18:05)
[2020-01-09] MEDS: ROCURONIUM 500 MG in SODIUM CHLORIDE 0.9% 500 ML IV PRN (20:10)
[2020-01-09] MEDS: ATORVASTATIN 20 MG TABLET PO SCH (20:15)
[2020-01-09] MEDS: ENOXAPARIN 30 MG/0.3 ML SYRINGE SUBCUT SCH (20:15)
[2020-01-10] MEDS: METOCLOPRAMIDE 10 MG/2 ML VIAL IV SCH ×4 (00:10→17:00)
[2020-01-10] MEDS: methylPREDNISolone SOD SUC 40 MG/1 ML VIAL IV SCH ×3 (01:35→17:02)
[2020-01-10 03:39] LABS: ABG Base Excess -4.2 MMOL/L (-2.5-2.5); ABG HCO3 22.2 MMOL/L (20-26); ABG Oxygen Saturation 91.8 % (95-100); ABG PCO2 46.6 MM HG (35-48); ABG PH 7.296 (7.35-7.45); ABG PO2 77.5 MM HG (80-95); ABG TCO2 23.6 MMOL/L (23-27); Allen Test Positive; Pt O2 Delivery Device Ventilator
[2020-01-10] MEDS ORDERED: GENTAMICIN INJ 120 MG in PREMIX 1 EACH IV PRN (09:14)
[2020-01-10] MEDS: GABAPENTIN 300 MG CAPSULE PO SCH ×2 (09:44→20:40)
[2020-01-10] MEDS: MEROPENEM 500 MG in SODIUM CHLORIDE 0.9% 100 ML IV SCH ×2 (09:44→21:25)
[2020-01-10] MEDS: LEVOTHYROXINE 88 MCG TABLET PO SCH (09:44)
[2020-01-10] MEDS: CITALOPRAM 20 MG TABLET PO SCH (09:45)
[2020-01-10] MEDS: allopurinoL 100 MG TABLET PO SCH (09:45)
[2020-01-10] MEDS: CLINDAMYCIN INJ 900 MG in PREMIX 1 EACH IV SCH ×2 (11:10→18:26)
[2020-01-10 13:34] LABS: Albumin 1.4 G/DL (3.4-5.0); Bilirubin,Total 1.5 MG/DL (0.2-1.0); Calcium 6.8 MG/DL (8.5-10.1); Osmolality,Calculated 298.5 MOS/KG (273-304); Total Protein 6.8 G/DL (6.4-8.3)
[2020-01-10] MEDS ORDERED: SODIUM BICARBONATE 50 MEQ/50 ML VIAL IV ONE (14:17)
[2020-01-10] MEDS ORDERED: VANCOMYCIN INJ 500 MG in SODIUM CHLORIDE 0.9% 100 ML IV ONE (17:00)
[2020-01-10] MEDS ORDERED: GENTAMICIN INJ 220 MG in SODIUM CHLORIDE 0.9% 100 ML IV ONE (17:00)
[2020-01-10] MEDS ORDERED: ALBUMIN 25% 25 GM in PREMIX 1 EACH IV PRN (17:57)
[2020-01-10] MEDS: ENOXAPARIN 30 MG/0.3 ML SYRINGE SUBCUT SCH (20:40)
[2020-01-10] MEDS: ATORVASTATIN 20 MG TABLET PO SCH (20:40)
[2020-01-11] MEDS: METOCLOPRAMIDE 10 MG/2 ML VIAL IV SCH ×4 (00:15→18:11)
[2020-01-11] MEDS: CLINDAMYCIN INJ 900 MG in PREMIX 1 EACH IV SCH ×3 (02:10→17:58)
[2020-01-11] MEDS: methylPREDNISolone SOD SUC 40 MG/1 ML VIAL IV SCH ×3 (02:10→18:12)
[2020-01-11 03:34] LABS: ABG Base Excess -1.4 MMOL/L (-2.5-2.5); ABG Oxygen Saturation 93.8 % (95-100); ABG PCO2 59.1 MM HG (35-48); ABG PH 7.262 (7.35-7.45); ABG PO2 88.2 MM HG (80-95); ABG TCO2 27.9 MMOL/L (23-27); Allen Test Positive; Pt O2 Delivery Device Ventilator
[2020-01-11 07:08] LABS: Albumin 1.4 G/DL (3.4-5.0)
[2020-01-11 07:10] LABS: Bilirubin,Total 2.17 MG/DL (0.2-1.0)
[2020-01-11 07:41] LABS: Total Protein 7.9 G/DL (6.4-8.3)
[2020-01-11 07:49] LABS: Calcium 7.2 MG/DL (8.5-10.1); Osmolality,Calculated 307.2 MOS/KG (273-304)
[2020-01-11] MEDS: allopurinoL 100 MG TABLET PO SCH (08:37)
[2020-01-11] MEDS: GABAPENTIN 300 MG CAPSULE PO SCH ×2 (08:37→21:30)
[2020-01-11] MEDS: LEVOTHYROXINE 88 MCG TABLET PO SCH (08:37)
[2020-01-11] MEDS: ZINC SULFATE 220 MG CAPSULE PO SCH (08:37)
[2020-01-11] MEDS: CITALOPRAM 20 MG TABLET PO SCH (08:37)
[2020-01-11] MEDS: MEROPENEM 500 MG in SODIUM CHLORIDE 0.9% 100 ML IV SCH ×2 (08:37→21:55)
[2020-01-11 11:52] LABS: Basophils % 0.2 % (0.0-0.8); Hematocrit 22.1 VOL% (42.0-52.0); Hemoglobin 8.9 GM/DL (14.0-18.0); Immature Granulocytes % 3.2 %; Immature Granulocytes Absolute 0.82 #; Lymphocytes # 0.3 10*3/uL (1.4-4.0); Lymphocytes % 1.2 % (21.2-54.2); Mean Corpuscular HGB Conc 40.3 GM/DL (32-36); Mean Corpuscular Volume 97.4 FL (87-102); Monocytes % 6.6 % (1.7-12.7); NRBC # 0.05 10*3/uL; Neutrophils % 88.8 % (38.7-73.9); Platelet Count 470 T/CUMM (130-400); Red Blood Count 2.27 MC/CUMM (3.8-5.5); Red Cell Distribution Width 14.7 % (9.3-17.3); White Blood Count 25.9 T/CUMM (4-12)
[2020-01-11 11:55] LABS: Band Neutrophils 1 % (0-10); Lymphocytes 1 % (20-55); Platelet Estimate Adequate; Segmented Neutrophils 90 % (50-85); Total Cells Counted 100
[2020-01-11 11:56] LABS: Hypochromasia 1+
[2020-01-11 12:19] LABS: Osmolality,Calculated 310.4 MOS/KG (273-304)
[2020-01-11] MEDS: ROCURONIUM 500 MG in SODIUM CHLORIDE 0.9% 500 ML IV PRN (12:33)
[2020-01-11 15:19] LABS: Calcium 6.7 MG/DL (8.5-10.1)
[2020-01-11] MEDS ORDERED: GENTAMICIN INJ 100 MG in PREMIX 1 EACH IV PRN (15:53)
[2020-01-11] MEDS ORDERED: GENTAMICIN INJ 120 MG in PREMIX 1 EACH IV ONE (17:00)
[2020-01-11] MEDS ORDERED: VANCOMYCIN INJ 500 MG in SODIUM CHLORIDE 0.9% 100 ML IV ONE (17:30)
[2020-01-11] MEDS: ATORVASTATIN 20 MG TABLET PO SCH (21:30)
[2020-01-11] MEDS: ENOXAPARIN 30 MG/0.3 ML SYRINGE SUBCUT SCH (21:30)
[2020-01-12] MEDS: METOCLOPRAMIDE 10 MG/2 ML VIAL IV SCH ×4 (00:05→18:25)
[2020-01-12] MEDS: CLINDAMYCIN INJ 900 MG in PREMIX 1 EACH IV SCH ×3 (02:39→18:25)
[2020-01-12] MEDS: methylPREDNISolone SOD SUC 40 MG/1 ML VIAL IV SCH ×3 (02:39→18:27)
[2020-01-12 04:09] LABS: Allen Test Positive; Pt O2 Delivery Device Ventilator
[2020-01-12 04:10] LABS: ABG HCO3 25.7 MMOL/L (20-26); ABG Oxygen Saturation 96.1 % (95-100); ABG PCO2 47.4 MM HG (35-48); ABG PH 7.352 (7.35-7.45); ABG PO2 100.7 MM HG (80-95); ABG TCO2 27.2 MMOL/L (23-27)
[2020-01-12 07:50] LABS: Bilirubin,Total 1.3 MG/DL (0.2-1.0)
[2020-01-12 07:51] LABS: Osmolality,Calculated 297.1 MOS/KG (273-304)
[2020-01-12 08:08] LABS: Albumin 1.3 G/DL (3.4-5.0)
[2020-01-12 08:09] LABS: Total Protein 7.6 G/DL (6.4-8.3)
[2020-01-12 08:20] LABS: Calcium 7.2 MG/DL (8.5-10.1)
[2020-01-12] MEDS: LEVOTHYROXINE 88 MCG TABLET PO SCH (08:20)
[2020-01-12] MEDS: allopurinoL 100 MG TABLET PO SCH (08:20)
[2020-01-12] MEDS: MEROPENEM 500 MG in SODIUM CHLORIDE 0.9% 100 ML IV SCH (08:20)
[2020-01-12] MEDS: GABAPENTIN 300 MG CAPSULE PO SCH ×2 (08:20→20:21)
[2020-01-12] MEDS: CITALOPRAM 20 MG TABLET PO SCH (08:21)
[2020-01-12 09:04] LABS: ABG Base Excess -1.1 MMOL/L (-2.5-2.5); ABG HCO3 24.9 MMOL/L (20-26); ABG PCO2 47.9 MM HG (35-48); ABG PH 7.333 (7.35-7.45); ABG TCO2 26.3 MMOL/L (23-27); Allen Test Positive; Pt O2 Delivery Device Ventilator
[2020-01-12 09:09] LABS: Basophils # 0.1 10*3/uL (0.0-0.2); Basophils % 0.2 % (0.0-0.8); Hematocrit 18.4 VOL% (42.0-52.0); Immature Granulocytes % 5.7 %; Lymphocytes # 0.3 10*3/uL (1.4-4.0); Lymphocytes % 1.1 % (21.2-54.2); Mean Corpuscular HGB Conc 51.1 GM/DL (32-36); Mean Corpuscular Volume 96.3 FL (87-102); Mean Platelet Volume 10.5 FL (9.6-12.0); Monocytes % 8.3 % (1.7-12.7); NRBC # 0.11 10*3/uL; Neutrophils % 84.7 % (38.7-73.9); Platelet Count 827 T/CUMM (130-400); Red Blood Count 1.91 MC/CUMM (3.8-5.5); Red Cell Distribution Width 15.7 % (9.3-17.3); White Blood Count 28.2 T/CUMM (4-12)
[2020-01-12 09:10] LABS: Hemoglobin 9.4 GM/DL (14.0-18.0)
[2020-01-12 09:23] LABS: Band Neutrophils 4 % (0-10); Hypochromasia 1+; Lymphocytes 5 % (20-55); Platelet Estimate Increased; Segmented Neutrophils 77 % (50-85); Total Cells Counted 100
[2020-01-12] MEDS: ENOXAPARIN 30 MG/0.3 ML SYRINGE SUBCUT SCH (20:21)
[2020-01-12] MEDS: ATORVASTATIN 20 MG TABLET PO SCH (20:21)
[2020-01-13] MEDS: METOCLOPRAMIDE 10 MG/2 ML VIAL IV SCH (00:39)
[2020-01-13] MEDS: methylPREDNISolone SOD SUC 40 MG/1 ML VIAL IV SCH (01:44)
[2020-01-13] MEDS: CLINDAMYCIN INJ 900 MG in PREMIX 1 EACH IV SCH (01:44)
[2020-01-13 03:26] VITALS: BP 80/57
== END 2020-01-13 03:50 | disposition expired | DRG 207 ==
LOC: N.ED 17:23 → N.EDINP 17:23 → N.2W 21:14 → SUATTDRO 01-01 13:01 → N.ICU 01-02 19:32 → N.CC 01-03 14:00
PROVIDERS: ADMIT Family Medicine; ATTEND Internal Medicine